=== PATIENT | male | born 1980 | race Caucasian/White ===

== ENCOUNTER 2021-09-26 19:42 | Emergency (ER) | payer MEDICAID, SELFPAY ==
[2021-09-26 19:55] VITALS: BP 145/96; PULSE 102; RESP 18; TEMP 36.4; O2SAT 97
--- NOTE | 2021-09-26 20:27 | ED.GENADUL_ITS ---
Discharge Plan Disposition Patient Disposition: HOME Condition: Stable Discharge Details Clinical Impression: Abscess, dental Primary Care Provider: Unknown,Unknown ED Provider: Lawrence Phelan Home Meds and New Rx's Prescriptions: New amoxicillin-pot clavulanate 875-125 mg tablet 1 tab PO BID Qty: 14 0RF Continued escitalopram oxalate [Lexapro] 10 mg Tablet 10 mg PO DAILY 0RF buspirone 5 mg Tablet 5 mg PO TID 0RF Discharge Instructions Instructions: Dental Abscess (ED) Additional Instructions: follow up as soon as possible with a dentist if you feel more ill, have difficulty swallowing liquids or fevers return to the emergency department Medical Decision Making 41 yo male comes in with 4 days of left upper posterior molar pain. Denies fevers, chills, difficulty swallowing. He localizes the pain to the left upper p osterior molar and has caries on this tooth and pain with percussion. Just above the tooth on the gum line is a small draining periapical abscess. No submandibular swelling, midline uvula, no restricted neck movements, no findings to suggest ludwigs, retropharyngeal abscess or peritonsilar abscess. Will place on augmentin and advised to f/u with dentist, return precautions given Differential Diagnosis Differential Diagnosis: pulpitis, dental abscess HPI General Mode of arrival: ambulatory . Date/Time Provider Initiated Documentation: 09/26/21 20:16 . Limitations to Documentation: no limitations . Information obtained by: patient . History of Present Illness 41 year old M presents to the emergency department with the chief complaint of tooth pain, described as moderate, Patient started experiencing this day(s) (4) and it has been constant. improves with No relieving factors improve symptom(s), No exacerbating factors reported . Patient notes no other symptoms.. Related Data Home Medications Medication Instructions Recorded Confirmed amoxicillin 875 mg-potassium 1 tab PO BID #14 tab 09/26/21 clavulanate 125 mg tablet buspirone 5 mg tablet 5 mg PO TID 09/26/21 09/26/21 escitalopram oxalate 10 mg tablet 10 mg PO DAILY 09/26/21 09/26/21 (Lexapro) Previous Rx's Medication Instructions Recorded amoxicillin 875 mg-potassium 1 tab PO BID #14 tab 09/26/21 clavulanate 125 mg tablet Allergies Allergy/AdvReac Type Severity Reaction Status Date / Time No Known Allergies Allergy Unverified 09/26/21 20:02 General Stated Complaint: DentalOral JOANNA: 4 Review of Systems All systems reviewed & are unremarkable except as noted in HPI and below Constitutional Constitutional: Denies chills, Denies fever(s) and Denies weakness Cardiovascular Cardiovascular: Denies chest pain and Denies dyspnea Respiratory Respiratory: Denies cough and Denies dyspnea Gastrointestinal Gastrointestinal: Denies abdominal pain, Denies nausea and Denies vomiting Neurologic Neurologic: Denies weakness PFSH All Active Problems (Updated 09/26/21 @ 20:27 by Lawrence Phelan MD) Abscess, dental (Acute) Social History Smoking/Tobacco Use Status: Current every day Tobacco Type: cigarettes Smoking risk assessment performed?: Yes Drug use: Daily Substance use type: marijuana Do you feel safe at home: Yes Do you feel safe in your relationship?: Yes Exam Const General: no acute distress Orientation: alert HENMT Head: normal to inspection Ears: external ears normal General nose exam: external nose normal Mouth: moist mucous membranes Eyes General: appearance normal, both eyes and all related structures Neck Neck: normal visual inspection Resp Effort & Inspection: normal respiratory effort and able to speak in complete sentences Cardio Rate: regular rate Skin General skin exam: no rashes or lesions noted Neuro General: patient alert and patient oriented x3 Extrem General: normal to inspection Psych Mental Status: mental status grossly normal Course Vital Signs Vital signs: Vital Signs Temperature 36.4 C L 09/26/21 19:55 Pulse 102 H 09/26/21 19:55 Respiratory Rate 18 09/26/21 19:55 Blood Pressure 145/96 H 09/26/21 19:55 Pulse Oximetry 97 09/26/21 19:55 Temperature 36.4 C L 09/26/21 19:55 Temperature Source Skin 09/26/21 19:55 Pulse 102 H 09/26/21 19:55 Respiratory Rate 18 09/26/21 19:55 Respiratory Effort 09/26/21 20:00 Blood Pressure 145/96 H 09/26/21 19:55 Blood Pressure Position Sitting 09/26/21 19:55 Pulse Oximetry 97 09/26/21 19:55 Oxygen Delivery Method Room Air 09/26/21 19:55 Oxygen Flow Rate 0 09/26/21 19:55 Pain Level 6 09/26/21 20:00
[2021-09-26] MEDS: Amoxicillin 875/Clav. 125 TAB PO (20:33)
== END 2021-09-26 20:32 | disposition home or self-care (01) ==
PROVIDERS: Emergency Provider Emergency Medicine
DX: K04.7 Periapical abscess without sinus (principal)
CPT/HCPCS: 99283